=== PATIENT | male | born 1995 | race Caucasian/White ===

== ENCOUNTER 2024-01-17 13:52 | Outpatient (AMB) | payer BC, SELFPAY ==
--- NOTE | 2024-01-17 14:05 | AM.OFFWIN_ITS ---
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 Patient is complaining of upper respiratory symptoms including headache, sore throat, nasal discharge, cough, chest congestion. He has a past medical history significant for anxiety. Patient denies chest pain, shortness a breath, dizziness, numbness, nausea, vomiting, diarrhea. Patient denies fever and chills ,has used [id number] Benadryl with little relief PFSH Social History Patient Tobacco Use Status: Never used Tobacco Review of Systems Const All systems reviewed & are unremarkable except as noted in HPI and below ENT Reports nasal discharge, Reports sinus pressure and Reports sore throat Card Denies chest pain Resp Reports cough and Denies wheezing Aller/Immun Denies wheezing Physical Exam Vital Signs: Last Vital Signs Temp 97.5 F 01/17/24 14:07 Pulse 86 01/17/24 14:07 BP 116/80 01/17/24 14:07 Pulse Ox 96 01/17/24 14:07 Oxygen Delivery Method Room Air 01/17/24 14:07 BMI result Body Mass Index 46.0 Vital signs reviewed stable Const Other: Appearance: Alert.? Oriented X3.? No acute distress.? Head: Normocephalic, atraumatic, no step-offs or deformities Eyes: Pupils equal, round and reactive to light.? ENT: + post nasal drip. TM intact and pearly price. Neck: Normal inspection.? Neck supple.? CVS: Normal heart rate and rhythm.? Pulses normal.? Respiratory: No respiratory distress.? Breath sounds normal.? Neuro: Oriented X 3.? No motor deficit.? No sensory deficit. CN 2-12 intact Results AMB Rapid Strep AMB Rapid Strep Negative Last Edit by Sherrie Hayward CMA on 01/17/24 14 :44 Assessment & Plan Assessment & Plan (1) Upper respiratory infection: Comment: Patient strep swab negative. Patient will have upper respiratory swab. Patient states he has history of asthma will give albuterol inhaler. Patient educated this likely a viral illness he can use [id number] medications for or symptom relief. Code(s): J06.9 - Acute upper respiratory infection, unspecified Qualifiers: URI type: unspecified URI Qualified Code(s): J06.9 - Acute upper respiratory infection, unspecified Plan: Take your medications as prescribed. If you were prescribed antibiotics today, it is important that you take your medication to their entirety, do not skip any doses, do not finish them early. Follow-up with your primary care provider this week. Return to the emergency department with new or worsening symptoms. Such as fevers, chills, chest pain, shortness of breath, nausea, vomiting, dizziness, headache, vision changes, lethargy In case of emergency call 911 Plan Follow-up with PCP Orders: Orders SARS-CoV2/FLU/RSV Today J06.9 - Acute upper respiratory infection, unspecified AMB Rapid Strep Screen Today Z13.9 - Encounter for screening, unspecified Coding Level of Care Code Est Pt Level 3 (02393) Diagnoses Upper respiratory tract infection, unspecified type J06.9 URI type: unspecified URI Time Spent (min) 21
[2024-01-17 14:07] VITALS: BP 116/80; PULSE 86; TEMP 36.4; O2SAT 96; BMI 46.0
== END 2024-01-17 16:40 | disposition home or self-care (01) ==
PROVIDERS: PCP Internal Medicine; Visit Provider Nurse Practitioner Primary Care
DX: J06.9 Acute upper respiratory infection, unspecified (principal)
CPT/HCPCS: 87880; 99213

== ENCOUNTER 2024-01-17 16:18 | Outpatient (REF) | payer BC, SELFPAY ==
[2024-01-17 17:28] LABS: Influenza A PCR NEGATIVE (Negative); Influenza B PCR NEGATIVE (Negative); Resp Syncy Virus RNA Qual PCR NEGATIVE (Negative); SARS COV2 PCR INHOUSE NEGATIVE (Negative)
== END 2024-01-17 16:19 | disposition home or self-care (01) ==
LOC: HO.LNP 16:18
PROVIDERS: Visit Provider Nurse Practitioner Primary Care
DX: Z11.52 Encounter for screening for COVID-19 (principal); J06.9 Acute upper respiratory infection, unspecified
CPT/HCPCS: 0241U